=== PATIENT | female | born 1935 | race Caucasian/White ===

== ENCOUNTER 2018-05-24 08:26 | Observation (INO) | payer MEDICARE, BC ==
[2018-05-24 08:52] LABS: #Basophils 0.1 thou/uL (0.0-0.2); #Eosinphils 0.1 thou/uL (0.0-0.7); #Lymphocytes 2.3 thou/uL (1.20-3.40); #Monocytes 0.5 thou/uL (0.11-0.59); #Neutrophils 2.9 thou/uL (1.40-6.50); %Basophils 1.3 % (0.0-1.0); %Eosinophils 1.9 % (0.0-10.0); %Lymphocytes 39.7 % (21.0-51.0); %Monocytes 7.6 % (0.0-10.0); %Neutrophils 49.6 % (42.0-75.0); Hemoglobin 14.5 g/dL (12.0-16.0); Mean Corpuscular HGB CONC 33.5 g/dL (32.0-36.0); Mean Corpuscular Hemoglobin 30.7 pg (27.0-31.0); Mean Corpuscular Volume 91.9 fL (78.0-98.0); Mean Platelet Volume 6.8 fL (7.4-10.4); Platelet Count 275 thou/uL (130-400); RBC Distribution Width 12.1 % (11.5-14.5); Red Blood Cell (RBC) Count 4.71 mill/uL (4.20-5.40); White Blood Cell (WBC) Count 5.9 thou/uL (4.8-10.8)
[2018-05-24 09:27] LABS: ALT (SGPT) 14 U/L (8-55); AST (SGOT) 20 U/L (5-34); Albumin 4.1 g/dL (3.4-4.8); Alkaline Phosphatase 62 U/L (40-150); Anion Gap 11 mmol/L (10-20); BUN (Urea Nitrogen) 13 mg/dL (9.8-20.1); Bilirubin, Total 0.8 mg/dL (0.2-1.2); CK (CPK) 53 U/L (29-168); Calc. Creatinine Clearance 0 mL/min (70-130); Calcium 9.5 mg/dL (7.8-10.44); Carbon Dioxide 27 mmol/L (23-31); Chloride 102 mmol/L (98-107); Estimated GFR-MDRD 71; Globulin 3.1 g/dL (2.4-3.5); Glucose 120 mg/dL (83-110); Potassium 3.2 mmol/L (3.5-5.1); Protein, Total 7.2 g/dL (6.0-8.3); Sodium 137 mmol/L (136-145)
--- NOTE | 2018-05-24 09:30 | RAD ---
CHEST 1 VIEW: Date: 05/24/18 COMPARISON: 11/27/16. HISTORY: Palpitations and indigestion. FINDINGS: Stable left perihilar changes. Stable configuration of the cardiac silhouette. No pneumothorax or oss eous abnormalities. IMPRESSION: No acute cardiopulmonary process. POS: ARIA
[2018-05-24 09:31] LABS: CKMB 1.8 ng/mL (0-6.6); Troponin I Less than 0.010 ng/mL (< 0.028)
[2018-05-24] MEDS ORDERED: Metoprolol Tartrate 5 MG/5 ML VIAL ONE (10:20)
[2018-05-24 10:41] LABS: Bilirubin Negative (Negative); Blood, Urine Trace (Negative); Clarity CLEAR (Clear); Glucose, Urine (Dipstick) Negative (Negative); Leukocyte Negative (Negative); Nitrite Negative (Negative); Protein, Urine (Dipstick) Negative (Neg-Trace); Specific Gravity, Urine 1.019 (1.002-1.036); Urobilinogen 0.2 mg/dL (0.2-1.0)
[2018-05-24 10:43] LABS: Bacteria/HPF None Seen HPF (None Seen); Hyaline Casts/LPF 4-6 HYALINE CAST LPF (0-3 Hyaline); Pathc Cast-AUWi Flag 0.58 (0-2.49); WBC/HPF 0-3 HPF (0-3)
--- NOTE | 2018-05-24 11:23 | CT ---
CT ARTERIOGRAM CHEST WITH IV COTNRAST AND 3D MIP IMAGING: HISTORY: Chest pain. Dyspnea. Tachycardia. COMPARISON: 12/01/2016. FINDINGS: There is good contrast opacification of the pulmonary arteries and thoracic aorta with normal branchi ng of the great vessels. Within the lateral aspect of the lower lobe, the lobular [id number] area wit h adjacent linear atelectasis is unchanged from the previous exam. Some air bronchograms extend into the infiltrate. No new areas of infiltrate, pleural fluid, or pneumothorax are apparent. IMPRESSION: 1. No CT evidence of pulmonary embolus. 2. Persistent mass-like infiltrate within the left upper lobe. It has not changed significantly ove r the 18-month interval. Please consider pulmonary medicine evaluation and potential bronchoscopy. POS: ARIA
--- NOTE | 2018-05-24 12:33 | HP ---
DATE OF ADMISSION: 05/24/2018 PRIMARY CARE PHYSICIAN: Dr. Zack Chery. TIME OF SERVICE: 1100. CHIEF COMPLAINT: Palpitations. HISTORY OF PRESENT ILLNESS: Ms. Burris is a pleasant 82-year-old female who appears younger than her stated age who woke up this morning and did not feel good. She noticed that her heart was racin g though she did not remark when asked if it was regular and with her medical background, decided to check her blood pressure. Her blood pressure was elevated and her heart rate was 117. She felt weak and some shortness of breath. She felt dizzy, which she described as lightheaded, but not off stuart ce. She called her primary care physician who told her to go to the emergency department. Her daugh ter drove her to the emergency department for evaluation. She never had any history of atrial fibrillation, atrial flutter or tachycardia before. She has had no chest pain. No fevers or chills. No cough or sputum production. On arrival to emergency department, blood pressure was 205/79 with a heart rate of 113. EKG was done that showed sinus tachycardia. Her heart rate came down on its own and 30 minutes later, she was gi selina a 5 mg dose of Lopressor. We were subsequently called for admission for hypertensive urgency. On my evaluation, the patient is feeling better. Her blood pressure had been in the 160s, but did go up as we were talking. Heart rate has been okay. She denies any other current complaints. Labs in the ER show potassium slightly low at 3.2 and her D-dimer to be barely elevated at 0.98. She had negative cardiac biomarker and CT angio was ordered. PAST MEDICAL HISTORY: 1. Hypothyroidism. 2. Hyperlipidemia, primary cholesterol. 3. Hypertension, essential. PAST SURGICAL HISTORY: Include; 1. Adenoidectomy, tonsillectomy, remotely. 2. Bilateral cataract replacement. 3. Left ovarian cyst removal. 4. Back surgery, laminectomy. 5. Hysterectomy, remotely. 6. Thyroidectomy. 7. Left TKA. 8. Cholecystectomy. 9. Hernia repair. HOME MEDICATIONS: 1. Levothyroxine 100 mcg p.o. daily. 2. Amlodipine 5 mg daily, decreased about a year ago from 10 down to 5 due to leg swelling. 3. Atenolol 50 mg p.o. q.p.m. 4. Pravachol 40 mg p.o. daily. 5. Aspirin 81 mg daily. 6. Celebrex 200 mg daily. 7. Zantac as needed. 8. Nexium 40 mg daily. 9. Estradiol cream as needed. ALLERGIES: LIMBREL and HYDROCODONE. FAMILY HISTORY: Negative for clotting or bleeding disorder. No immune dysfunction, no cancers. SOCIAL HISTORY: Negative for habits x3. She lives at home with her daughter, but is very independen t and her daughter does not interfere with her activities. REVIEW OF SYSTEMS: All systems reviewed and negative except as stated per HPI. PHYSICAL EXAMINATION: VITAL SIGNS: Temperature 97.7, pulse 63, blood pressure 165/65, respiratory rate 15, sat 98% on room air. On arrival, heart rate was 113 with a blood pressure 205/79. GENERAL: She is awake. She is alert. She is oriented x3. Well-developed, well-nourished, elderly white female, appears in no distress. HEENT: Normocephalic, atraumatic. Pupils equal, round, react to light bilaterally. She has bilater al pseudophakia. NECK: Supple. There is no lymphadenopathy, JVD, or thyromegaly. She had normal carotid upstroke. I do not appreciate bruits. LUNGS: Clear, no wheezing, rales or rhonchi. Good air movement. Symmetric chest excursion. No pro longed expiratory phase. ABDOMEN: Soft. Nontender and slightly distended. She is not tympanitic. She has no rebound, rigid ity or guarding. EXTREMITIES: No cyanosis or clubbing. She got no edema. SKIN: Warm, moist, and well perfused. There were no rashes, no lesions. MUSCULOSKELETAL: Normal to inspection. Large joints appear normal. There is no evidence of inflamm ation or palpable effusion. NEUROLOGIC: Cranial nerves II-XII grossly intact. She has 5/5 strength in all 4 extremities. She h as a normal speech pattern. No focal deficits. LABORATORY DATA: Sodium 137, potassium 3.2, chloride 102, bicarb 27, BUN 13, creatinine 0.78, calciu m 9.5, glucose of 120. Liver function within normal limits. CBC showed a white count of 5.9, hemoglobin 14.5, hematocrit of 43.3, platelet count 275,000. D-dime r slightly elevated at 0.98. Troponin I was negative x1 at less than 0.010. Chest x-ray was read th ere is no abnormality; however, I do see something in the middle of the left lung. CT angiogram show ed a lobular mass present in the left upper lobe in the peribronchial area. On review of CAT scan fr om 11/2016, this was present as an irregular infiltrate then. There is no cavitation. There are jayant e air bronchograms. Patient did not know about it. ASSESSMENT AND PLAN: 1. Sinus tachycardia. 2. Hypertensive urgency. 3. Left upper lobe lung mass, chronic and appears stable. 4. Hypothyroidism. 5. Essential hypertension. 6. Hypercholesterolemia. Place the patient in observation. We will watch on the heart monitor. Co ntinue home medications and keep her blood pressure under controlled. We will get serial cardiac bio markers. 7. Lung mass. Patient has had this for at least 18 months. It appears to be unchanged and certainl y not any larger. We will have pulmonary reviewed the films and will have her follow up with them as an outpatient. These will be very easily amenable to bronchoscopic biopsy. 8. Hyperlipidemia. We will hold pravastatin for now. 9. Essential hypertension. We will continue her amlodipine and atenolol. Add p.r.n. hydralazine as needed. 10. Hypothyroidism, on levothyroxine, which will continue.
[2018-05-24] MEDS ORDERED: hydrALAZINE 20 MG/ML VIAL SLOW IVP PRN (12:53)
[2018-05-24] MEDS ORDERED: Acetaminophen 325 MG TAB PO PRN (12:53)
[2018-05-24] MEDS ORDERED: Enoxaparin Sodium 40 MG/0.4 ML SYRINGE SC SCH (12:53)
[2018-05-24 13:04] VITALS: BMI 33.5
[2018-05-24 13:07] LABS: Troponin I Less than 0.010 ng/mL (< 0.028)
[2018-05-24 19:30] LABS: CKMB 1.7 ng/mL (0-6.6); Troponin I Less than 0.010 ng/mL (< 0.028)
[2018-05-24] MEDS ORDERED: Atenolol 50 MG TAB PO SCH (21:00)
[2018-05-24] MEDS ORDERED: Amlodipine 10 MG TAB PO SCH (21:00)
[2018-05-25 00:30] LABS: CKMB 1.8 ng/mL (0-6.6); Troponin I Less than 0.010 ng/mL (< 0.028)
[2018-05-25 05:46] LABS: #Basophils 0.1 thou/uL (0.0-0.2); #Eosinphils 0.1 thou/uL (0.0-0.7); #Monocytes 0.5 thou/uL (0.11-0.59); #Neutrophils 2.4 thou/uL (1.40-6.50); %Basophils 1.1 % (0.0-1.0); %Eosinophils 2.4 % (0.0-10.0); %Lymphocytes 39.3 % (21.0-51.0); %Monocytes 8.9 % (0.0-10.0); %Neutrophils 48.3 % (42.0-75.0); Hemoglobin 13.2 g/dL (12.0-16.0); Mean Corpuscular HGB CONC 33.2 g/dL (32.0-36.0); Mean Corpuscular Hemoglobin 30.7 pg (27.0-31.0); Mean Corpuscular Volume 92.4 fL (78.0-98.0); Platelet Count 234 thou/uL (130-400); RBC Distribution Width 12.1 % (11.5-14.5); Red Blood Cell (RBC) Count 4.29 mill/uL (4.20-5.40); White Blood Cell (WBC) Count 5.1 thou/uL (4.8-10.8)
[2018-05-25 05:57] LABS: Anion Gap 9 mmol/L (10-20); BUN (Urea Nitrogen) 11 mg/dL (9.8-20.1); Calc. Creatinine Clearance 101 mL/min (70-130); Calcium 8.6 mg/dL (7.8-10.44); Carbon Dioxide 24 mmol/L (23-31); Cardiac Risk 2.9 (Less than 4.5); Chloride 108 mmol/L (98-107); Cholesterol 144 mg/dl (< 200 Desired); Estimated GFR-MDRD 87; Glucose 88 mg/dL (83-110); HDL Cholesterol 50 mg/dL (>60 Neg Risk); LDL Cholesterol, Calculated 76 mg/dL; Magnesium 2.1 mg/dL (1.6-2.6); Potassium 3.6 mmol/L (3.5-5.1); Sodium 137 mmol/L (136-145); Triglycerides 88 mg/dL (Less than 150)
[2018-05-25] MEDS ORDERED: Levothyroxine Sodium 100 MCG TAB PO SCH (06:00)
[2018-05-25 08:14] VITALS: BP 159/76; TEMP 97.9
[2018-05-25] MEDS ORDERED: Aspirin 81 mg Enteric Coated Tablet PO SCH (09:00)
[2018-05-25] MEDS ORDERED: Enoxaparin Sodium 40 MG/0.4 ML SYRINGE SC SCH (09:00)
--- NOTE | 2018-05-26 08:25 | EKG ---
Test Reason : Blood Pressure : / mmHG Vent. Rate : 113 BPM Atrial Rate : 113 BPM P-R Int : 186 ms QRS Dur : 080 ms QT Int : 320 ms P-R-T Axes : 038 -33 036 degrees QTc Int : 438 ms Sinus tachycardia Left axis deviation Septal infarct , age undetermined Inferior infarct , age undetermined /(Doubtful) Q's in III and aVF Abnormal ECG Confirmed by TED PACKER ([id number]) on 05/26/2018 8:25:08 AM Referred By: Confirmed By:TED PACKER
== END 2018-05-25 11:49 | disposition home or self-care (01) ==
LOC: ERS 08:26 → 2SW 11:31
PROVIDERS: ADMIT Internal Medicine Infectious Disease; ATTEND Internal Medicine Infectious Disease
DX: R00.2 Palpitations (principal); R00.0 Tachycardia, unspecified; E03.9 Hypothyroidism, unspecified; E78.00 Pure hypercholesterolemia, unspecified; I10 Essential (primary) hypertension; I16.0 Hypertensive urgency; R91.8 Other nonspecific abnormal finding of lung field; Z88.8 Allergy status to other drugs, medicaments and biological substances; Z88.5 Allergy status to narcotic agent; Z79.82 Long term (current) use of aspirin; Z79.899 Other long term (current) drug therapy
CPT/HCPCS: 71045; 71275; 80048; 80061; 82550; 82553 ×3; 83735; 83880; 84484 ×3; 85025; 85379; 93005; 96372; 96374; 97139; 99285; G0378 ×2; 36415; 80053; 81003; 81015; 84443; 96361; J1650

== ENCOUNTER 2018-06-03 07:37 | Day surgery (SDC) | payer MEDICARE, BC ==
[2018-05-31 12:56] VITALS: BMI 32.3
--- NOTE | 2018-05-31 12:59 | HP ---
DATE OF CONSULTATION: 05/31/2018 SERVICE: Pulmonary Medicine. REASON FOR CONSULTATION: Pulmonary mass. HISTORY OF PRESENT ILLNESS: The patient is a very pleasant 82-year-old white female with past medical history significant for an infiltrate that was identified roughly 18 months ago. She got a round of antibiotic and felt better at that time. That being said, repeat imaging recently demonstrated a persistence of the pulmonary mass in the same location. It really had not progressed to any significant degree. That being said, this consultation was established. The patient is a little lack of energy. She is not having any night sweats or hemoptysis. That being said, she has had a little bit of weight reduction. She also has a minimal anorexia present. She has no known lung disease and is a lifelong nonsmoker. She does not have any significant lung cancers that run in primary relatives. PAST MEDICAL HISTORY: 1. Hypothyroidism. 2. Hypertension. 3. Dyslipidemia. 4. Gastroesophageal reflux disease. 5. Atrophic vaginitis. PAST SURGICAL HISTORY: 1. Tonsillectomy and adenoidectomy in 1941. 2. D&C in 1964. 3. Total abdominal hysterectomy in 1969. 4. Right thyroidectomy for cold nodule in 1966. 5. Laminectomy in 1974. 6. Cholecystectomy in 1978. 7. Left thyroidectomy for a cold nodule in 1978. 8. Rectocele repair, posterior 1994. 9. Right total knee replacement with angioplasty, 2000. 10. EGD and colonoscopy in 2002. 11. Cystectomy off the left ovary in 2002. 12. Herniorrhaphy in 2007. 13. EGD/colonoscopy in 2007. 14. Cataract surgery, bilateral in 2008. 15. Left ureter stent placement in 2015. 16. Left total knee replacement in 2016. SOCIAL HISTORY: Negative for alcohol, tobacco or illicit drug use. She is a lifelong nonsmoker. She has no exposure to chemicals, dust asbestos or tuberculosis. FAMILY HISTORY: Positive for heart attack, cancer, not lung, thyroid disease, and osteoarthritis. ALLERGIES: 1. HYDROCODONE. 2. LIMBREL causes fever, shortness of breath, upset stomach, dark urine, light stools, and loose stool and gas. MEDICATIONS: 1. Levothyroxine 100 mcg p.o. daily. 2. Amlodipine 5 mg p.o. at bedtime. 3. Atenolol 50 mg p.o. at bedtime. 4. Pravastatin 40 mg p.o. at bedtime. 5. Zantac 150 mg p.o. b.i.d. 6. Estradiol vaginal cream 0.1 mg per gram p.m. 7. Aspirin 81 mg p.o. daily (temporarily interrupted today). 8. Multivitamin 1 tab p.o. daily. 9. Citracal with Vitamin D 1 tab p.o. daily. 10. Celebrex 1 tab p.o. as needed. 11. CoQ10 one tab p.o. daily. REVIEW OF SYSTEMS: General, head, ears, eyes, nose, throat, cardiovascular, respiratory, GI, , musculoskeletal, neurologic and skin is negative except as mentioned in the HPI. PHYSICAL EXAMINATION: VITAL SIGNS: Afebrile, pulse 81, respirations 13, saturation 98% on room air. GENERAL: The patient is awake, alert, no apparent distress. LUNGS: Excellent air entry. There is no prolonged expiratory phase or wheezing. No rhonchi or crackles are appreciated. HEART: Normal rate, regular. ABDOMEN: Soft, nontender, nondistended. Bowel sounds positive. MUSCULOSKELETAL: No cyanosis or clubbing. There is no pitting in the bilateral lower extremities. NEUROLOGIC: Grossly nonfocal. IMAGING: CT of the chest demonstrates infiltrate appearing mass in the left upper lobe which has persisted and not changed significantly over 18-month interval. Outside of this, I do not see any acute cardiopulmonary abnormalities. There is certainly no significant lymphadenopathy identified within the mediastinum. ASSESSMENT: Pulmonary mass/infiltrate. DISCUSSION AND PLAN: We will set up a bronchoscopy for Sunday. We will have her return to clinic 1 week after that can be arranged. We will set up pulmonary function studies. If they hand turner to be not indicated, we will discontinue them at her followup appointment. VICTOR MANUEL
[2018-06-03] MEDS ORDERED: Lidocaine 2% PF 5 ML VIAL ONE (08:21)
[2018-06-03] MEDS ORDERED: Lidocaine 1% (PF) 30 ML VIAL ONE (09:58)
[2018-06-03] MEDS ORDERED: Fentanyl 100 MCG/2 ML VIAL ONE (10:05)
[2018-06-03 13:37] LABS: BF Color Red; Body Fluid Source Bronchial Washings; Clarity Cloudy/Turbid (Clear); Tube # EDTA
--- NOTE | 2018-06-03 13:42 | OP ---
DATE OF PROCEDURE: 06/03/2018 SERVICE: Pulmonary Medicine. PROCEDURE: Fiberoptic bronchoscopy with: 1. Visual airway inspection. 2. Endobronchial brush of the left upper lobe. 3. Bronchoalveolar lavage of the left upper lobe. 4. Transbronchial biopsies of the left upper lobe. PREPROCEDURE DIAGNOSIS: Pulmonary mass. POSTPROCEDURE DIAGNOSIS: Pulmonary mass. PROCEDURE MOTION PICTURE EQUIPMENT SUPERVISOR: Shreyas Boudreaux M.D. MEDICATIONS USED: For a list of medications, please refer to anesthesia documentation. PREANESTHESIA ASSESSMENT: H and P had been performed. The patient's medications and allergies were reviewed. Informed consent was obtained after discussing the risks, benefits, and rationale for perf orming the procedure as well as alternative options. DESCRIPTION OF PROCEDURE: A timeout was performed identifying the correct procedure and patient with name and date of . A diagnostic fiberoptic bronchoscope was introduced through the 8.0 endotra cheal tube. The bronchoscope was advanced into the trachea where a tracheobronchial tree inspection was carried out with clear identification of the right upper lobe, right middle lobe, right lower lob e, left upper lobe, lingula, and left lower lobe. Anatomy was normal to the segmental level without any evidence of endobronchial disease. Endobronchial brushing was performed under fluoroscopic roxie nce. A BAL was subsequently performed. Lastly, multiple transbronchial biopsies were taken from sev eral areas of the anterolateral segment of the left upper lobe under fluoroscopy. Hemostasis was samira ified and the bronchoscope was subsequently removed from the patient. Post-procedure fluoroscopy did not demonstrate any pneumothorax. FINDINGS: 1. No endobronchial disease was identified. 2. Secretions were absent. SPECIMENS OBTAINED: 1. Pathology on BAL, brushings, and transbronchial biopsy. 2. Microbiology on BAL. COMPLICATIONS: None. ESTIMATED BLOOD LOSS: 2 mL. FLUOROSCOPY TIME: 2 minutes. DISPOSITION: The patient will be discharged home with post-procedure instructions. She will return to clinic in 1 week as previously directed.
[2018-06-03 13:43] LABS: BF RBC Count - Manual 72600 /cumm; BF WBC/Nonhematics Ct. - Manua 180 /cumm
[2018-06-03 15:48] LABS: BF Segmented Neutrophils 14 %; Cell Count Non Hematic 73 %; Lymphocytes 13 %
[2018-06-03] MEDS ORDERED: Glycopyrrolate 0.2 MG/ML 5 ML SYRINGE ONE (17:20)
[2018-06-03] MEDS ORDERED: Ondansetron PF 4 MG/2 ML Vial ONE (17:20)
[2018-06-03] MEDS ORDERED: PROPOFOL 200 MG/20 ML VIAL ONE (17:20)
[2018-06-06 10:22] LABS: Fungus Stain Final report (.)
== END 2018-06-03 12:27 | disposition home or self-care (01) ==
LOC: SDC 07:37
PROVIDERS: ATTEND Internal Medicine
PROC: 0BDG8ZX Extraction of Left Upper Lung Lobe, Via Natural or Artificial Opening Endoscopic, Diagnostic (ICD-10-PCS; principal; 2018-06-03)
PROC: 0BDG8ZX Extraction of Left Upper Lung Lobe, Via Natural or Artificial Opening Endoscopic, Diagnostic (ICD-10-PCS; 2018-06-03)
PROC: 0B9G8ZX Drainage of Left Upper Lung Lobe, Via Natural or Artificial Opening Endoscopic, Diagnostic (ICD-10-PCS; 2018-06-03)
DX: C34.12 Malignant neoplasm of upper lobe, left bronchus or lung (principal); E03.9 Hypothyroidism, unspecified; E78.5 Hyperlipidemia, unspecified; K21.9 Gastro-esophageal reflux disease without esophagitis; N95.2 Postmenopausal atrophic vaginitis; I10 Essential (primary) hypertension; Z79.82 Long term (current) use of aspirin; Z79.899 Other long term (current) drug therapy; Z88.5 Allergy status to narcotic agent; Z88.8 Allergy status to other drugs, medicaments and biological substances
CPT/HCPCS: 85060; 87070; 87102; 87116; 87205; 87206; 88112; 88305; 88313; 88341; 88342; 89051; J2001; J2405; J2704; J3010; J7620

== ENCOUNTER 2018-06-18 07:06 | Outpatient (CLI) | payer MEDICARE, BC | END 2018-06-18 07:07 | disposition home or self-care (01) | LOC: CP 07:06 | PROVIDERS: ATTEND Orthopaedic Surgery Sports Medicine | DX: R91.8 Other nonspecific abnormal finding of lung field (principal) | CPT/HCPCS: 94060; 94727; 94729 ==

== ENCOUNTER 2018-06-21 08:05 | Outpatient (CLI) | payer MEDICARE, BC ==
--- NOTE | 2018-06-21 12:19 | MRI ---
MRI BRAIN WITH AND WITHOUT CONTRAST: HISTORY: Small cell cancer. Evaluate for metastases. COMPARISON: None. FINDINGS: No hemorrhage on the axial gradient echo sequence. No parenchymal mass, mass effect, or midline shift. Brain volume is age appropriate. Cortical sharp white matter differentiation is preserved. The ventricles and sulci are patent and symmetric. Central arterial flow voids are maintained. Absent restricted diffusion. Note is made of a partially empty sella. There are T2 and FLAIR white matter hyperintensities, likely due to chronic small vessel ischemic daniel nge. No associated enhancement or restricted diffusion. The calvarium has a normal T1 marrow signal intensity. Midline brain parenchymal structures are unre markable. No pathologic enhancement of the brain parenchyma. Minimal mucosal thickening of the ethmoid air cells. Adequate mastoid air cell aeration. IMPRESSION: 1. No pathologic enhancement of the brain parenchyma. 2. Chronic small vessel ischemic changes of the white matter. POS: ARIA
[2018-06-21] MEDS ORDERED: Gadobenate Dimeglumine 529 MG/1 ML (20ML VIAL) ONE (12:38)
--- NOTE | 2018-06-21 12:50 | PET ---
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 Exam requested for initial staging. TECHNIQUE: PET scanning with CT attenuation correction was performed from the base of the brain through the prox imal thighs following the intravenous administration of 11.8 mCi [id number] in the right antecubital fos sa. Imaging was performed after an uptake interval of 50 minutes. COMPARISON: None. FINDINGS: There is hypermetabolic activity in the anterior aspect of the left upper lobe lung mass seen on the CT scan of 05/24/18 with a SUV of 10.8. No rosalie hypermetabolism is seen in the neck, mediastinum, hilar regions, axilla, abdomen, or pelvis. No hypermetabolic liver, adrenal, or skeletal lesions are seen. There is physiologic activity in the GI and tracts, and the visualized portions of the brain. The CT scan used for attenuation correction demonstrates no evidence of pleural effusions or ascites. IMPRESSION: Left upper lobe lung malignancy. No evidence of metastatic disease. POS: ARIA
== END 2018-06-21 08:06 | disposition home or self-care (01) ==
LOC: PET 08:05
PROVIDERS: ATTEND Internal Medicine
DX: C34.12 Malignant neoplasm of upper lobe, left bronchus or lung (principal)
CPT/HCPCS: 70553; 78815; A9552; A9579

== ENCOUNTER 2018-07-03 15:24 | Outpatient (CLI) | payer MEDICARE, BC ==
[2018-07-03 16:14] LABS: Hemoglobin 14.3 g/dL (12.0-16.0); Mean Corpuscular HGB CONC 33.1 g/dL (32.0-36.0); Mean Corpuscular Hemoglobin 30.5 pg (27.0-31.0); Mean Corpuscular Volume 92.1 fL (78.0-98.0); Platelet Count 236 thou/uL (130-400); RBC Distribution Width 12.3 % (11.5-14.5); White Blood Cell (WBC) Count 5.7 thou/uL (4.8-10.8)
[2018-07-03 16:20] LABS: PTT 28.6 SEC (22.9-36.1); Prothrombin Time 13.5 SEC (12.0-14.7)
[2018-07-03 16:39] LABS: Anion Gap 12 mmol/L (10-20); BUN (Urea Nitrogen) 14 mg/dL (9.8-20.1); Calc. Creatinine Clearance 0 mL/min (70-130); Calcium 9.8 mg/dL (7.8-10.44); Carbon Dioxide 29 mmol/L (23-31); Chloride 104 mmol/L (98-107); Estimated GFR-MDRD 70; Glucose 101 mg/dL (83-110); Potassium 3.8 mmol/L (3.5-5.1); Sodium 141 mmol/L (136-145)
--- NOTE | 2018-07-04 14:30 | EKG ---
Test Reason : Blood Pressure : / mmHG Vent. Rate : 070 BPM Atrial Rate : 070 BPM P-R Int : 178 ms QRS Dur : 084 ms QT Int : 404 ms P-R-T Axes : 060 -10 039 degrees QTc Int : 436 ms Normal sinus rhythm Low voltage QRS Septal infarct (cited on or before 24-MAY-2018) Abnormal ECG When compared with ECG of 24-MAY-2018 08:32, Vent. rate has decreased BY 43 BPM Criteria for Inferior infarct are no longer Present Nonspecific T wave abnormality now evident in Anterior leads Confirmed by BROOK NELSON, DR. Jiang ([id number]) on 07/04/2018 2:29:30 PM Referred By: MARTA Confirmed By:DR. Apolinar DOE MD
== END 2018-07-03 15:25 | disposition home or self-care (01) ==
LOC: LABBT 15:24
PROVIDERS: ATTEND Thoracic Surgery (Cardiothoracic Vascular Surgery)
DX: Z01.818 Encounter for other preprocedural examination (principal); C34.12 Malignant neoplasm of upper lobe, left bronchus or lung
CPT/HCPCS: 80048; 85027; 85610; 85730; 86850; 86900; 86901; 93005; 93010

== ENCOUNTER 2018-07-04 05:55 | Inpatient (IN) | payer MEDICARE, BC ==
[2018-07-04] MEDS ORDERED: Bupivacaine HCl 0.5%/Epinephrine 1:200,000/PF 30 ml Vial ONE (06:27)
[2018-07-04] MEDS ORDERED: Fentanyl 250 MCG/5 ML VIAL ONE (06:33)
[2018-07-04] MEDS ORDERED: Ropivacaine 0.5% HCl/PF (150 MG/30 ML VIAL) ONE (06:33)
[2018-07-04] MEDS ORDERED: Phenylephrine HCL 10 MG/ML VIAL ONE ×2 (06:41→11:28)
[2018-07-04] MEDS ORDERED: CEFAZOLIN 2 GM/50 ML BAG ONE ×2 (07:17→16:08)
[2018-07-04] MEDS ORDERED: traMADol HCl 50 MG TAB PO PRN ×2 (08:30)
[2018-07-04] MEDS ORDERED: diphenhydrAMINE 50 MG/ML VIAL IM PRN (08:30)
[2018-07-04] MEDS ORDERED: Zolpidem Tartrate 5 MG TAB PO PRN (08:30)
[2018-07-04] MEDS ORDERED: diphenhydrAMINE 50 MG/ML VIAL IVP PRN (08:30)
[2018-07-04] MEDS ORDERED: Naloxone HCl 0.4 mg/ml Vial IVP PRN (08:30)
[2018-07-04] MEDS ORDERED: Promethazine HCl 25 MG SUPP PR PRN (08:30)
[2018-07-04] MEDS ORDERED: Naloxone HCl 0.4 mg/ml Vial IV PRN (08:30)
[2018-07-04] MEDS ORDERED: Hydrocerin (Eucerin) Cream 120 gm Jar TOP PRN (08:30)
[2018-07-04] MEDS ORDERED: Promethazine HCl 25 MG/ML VIAL IM PRN ×2 (08:30→10:07)
[2018-07-04] MEDS ORDERED: Lidocaine 1% (PF) 30 ML VIAL ONE (09:32)
[2018-07-04] MEDS ORDERED: Fentanyl/Bupivacaine 100 ML EPIDURAL ONE (10:01)
[2018-07-04] MEDS ORDERED: Ondansetron HCl/PF 4 MG/2 ML Vial IVP PRN (10:07)
[2018-07-04] MEDS ORDERED: Promethazine HCl 25 MG/ML VIAL SLOW IVP PRN (10:07)
[2018-07-04] MEDS ORDERED: Fentanyl 100 MCG/2 ML VIAL ONE ×3 (10:17→13:35)
[2018-07-04] MEDS ORDERED: Phenylephrine 1% Nasal Spray 15 ML BOT ONE (11:00)
--- NOTE | 2018-07-04 11:55 | RAD ---
SINGLE VIEW CHEST: Date: 07/04/18 COMPARISON: 05/24/18. HISTORY: Status post thoracotomy. FINDINGS: Single view of the chest shows an enlarged cardiomediastinal silhouette. There are left-sided chest t ubes. There may be a small left apical pneumothorax. No consolidation or pleural effusion seen. Surgi simona clips are seen in the left hilar region. IMPRESSION: Status post thoracotomy with small left apical pneumothorax. POS: ARIA
[2018-07-04] MEDS ORDERED: PROPOFOL 200 MG/20 ML VIAL ONE (12:53)
[2018-07-04] MEDS ORDERED: Glycopyrrolate 0.2 MG/ML 5 ML SYRINGE ONE (12:53)
[2018-07-04] MEDS ORDERED: Lidocaine 1% PF 5 ML VIAL ONE (12:53)
[2018-07-04] MEDS ORDERED: ePHEDrine/0.9% NaCl/PF SYRINGE 50 mg/10 ml ONE (12:53)
[2018-07-04] MEDS ORDERED: Ondansetron PF 4 MG/2 ML Vial ONE (12:53)
[2018-07-04] MEDS ORDERED: Dexamethasone 20 MG/5 ML VIAL ONE (12:53)
[2018-07-04 14:04] VITALS: BMI 33.0
[2018-07-04] MEDS ORDERED: Phenylephrine 10 MG/NS 250 ML 250 ML IVPB PRN (15:31)
[2018-07-04] MEDS ORDERED: CEFAZOLIN/Water 2 GM/20 ML SYRINGE SLOW IVP SCH (15:31)
[2018-07-04] MEDS ORDERED: HYDROcodone/Acetaminophen 5/325 mg Tablet PO PRN ×2 (15:31)
[2018-07-04] MEDS ORDERED: hydrALAZINE 20 MG/ML VIAL SLOW IVP PRN (15:31)
[2018-07-04] MEDS ORDERED: Ketorolac Tromethamine 30 MG/ML VIAL ONE (17:49)
--- NOTE | 2018-07-04 19:39 | OP ---
DATE OF PROCEDURE: 07/04/2018 PREOPERATIVE DIAGNOSIS: Left upper lobe adenocarcinoma. POSTOPERATIVE DIAGNOSIS: Left upper lobe adenocarcinoma. PROCEDURES PERFORMED: Left thoracoscopy/thoracotomy with left upper lobectomy and mediastinal lymph node dissection. ANESTHESIA: General endotracheal. ANESTHESIOLOGIST: Angelo Vickers DO DRAINS: 24-Romansh chest tube x2. ESTIMATED BLOOD LOSS: Less than 50 ml SPECIMENS: 1. Left upper lobe-bronchial margin negative on frozen section. 2. Levels 9L, 8L, and 4L lymph nodes sent individually for pathologic exam. DESCRIPTION OF PROCEDURE: After consent was obtained, the patient was brought to the operating room and placed in supine position on the operating table. Appropriate landmarks were placed and general endotracheal anesthesia induced. The patient was placed in the right lateral decubitus position. Joints were properly padded. SCDs were used. Left chest was prepped and draped in usual sterile fashion. Skin incision was made in the anterior axillary line and thoracoscope inserted. On inspection, the left upper lobe mass had puckered the surface of the lung. An incision was positioned appropriately over the fissure. A small working incision was then made. Ribs were minimally spread. The infrapulmonary ligament was released and level 9 lymph node sent. Hilar parietal pleura was released. A level 8 and a level 4 lymph node were also sent. Pulmonary veins were exposed draining the left upper lobe. These were divided with vascular stapler. Apical pulmonary artery branches were divided with vascular stapler. The fissure was then opened. The lingular branch was divided with vascular stapler. Posterior fissure was completed with a thick- tissue CORDELL stapler. Anterior fissure was then completed with a thick-tissue CORDELL stapler. Bronchus was clamped with a thick-tissue CORDELL stapler. Lower lobe inflated nicely. The stapler was then fired and the upper lobe removed. Bronchial stump was tested under 40 cm of water pressure and it was airtight. Chest was copiously irrigated. Hemostasis was ensured. Two 24-Romansh Mike drains were placed, one over the diaphragm, one to the apex, and secured the skin with silk suture. The left lung was then reinflated and filled the chest cavity nicely. Ribs were reapproximated with #1 Vicryl. Wounds were irrigated and closed in layers and Dermabond applied to the skin. The patient was awakened, extubated, and transferred to the recovery room in stable condition. Needle, sponge, and instrument counts were all reported as correct at the end of the procedure. Job ID: [id number] [id number]
[2018-07-04] MEDS ORDERED: INULIN 2 GM PO SCH (21:00)
[2018-07-04] MEDS: Acetaminophen 1,000 MG in Premix Bag 1 BAG IVPB SCH ×2 (21:40→21:41)
[2018-07-04] MEDS: Ketorolac Tromethamine 30 MG/ML VIAL IVP SCH (21:41)
[2018-07-04] MEDS: Sodium Chloride 0.9% 1,000 ML IV SCH (21:42)
[2018-07-04] MEDS: Atorvastatin Calcium 10 MG TAB PO SCH (21:42)
[2018-07-04] MEDS: CEFAZOLIN 2 GM/50 ML-DEXTROSE 2 GM in Premix Bag 1 BAG IVPB SCH (21:42)
[2018-07-04] MEDS: Ubidecarenone 50 MG CAP PO SCH (21:43)
[2018-07-04] MEDS: Calcium Carbonate + Vit D 1 TAB PO SCH (21:43)
[2018-07-04] MEDS: Aspirin 81 mg Enteric Coated Tablet PO SCH (21:43)
[2018-07-04] MEDS: Amlodipine 5 MG TAB PO SCH (21:43)
[2018-07-04] MEDS: Atenolol 50 MG TAB PO SCH (21:43)
[2018-07-04] MEDS: Famotidine 20 MG TAB PO SCH (21:43)
[2018-07-04] MEDS: Fentanyl/Bupivacaine 100 ML EPIDURAL SCH (21:45)
[2018-07-05] MEDS: Ketorolac Tromethamine 30 MG/ML VIAL IVP SCH ×5 (00:16→23:57)
[2018-07-05] MEDS: CEFAZOLIN 2 GM/50 ML-DEXTROSE 2 GM in Premix Bag 1 BAG IVPB SCH ×2 (00:16→08:13)
[2018-07-05] MEDS: Acetaminophen 1,000 MG in Premix Bag 1 BAG IVPB SCH ×5 (00:16→23:57)
[2018-07-05 04:28] LABS: #Lymphocytes 0.8 thou/uL (1.20-3.40); #Monocytes 0.7 thou/uL (0.11-0.59); #Neutrophils 8.7 thou/uL (1.40-6.50); %Eosinophils 0.4 % (0.0-10.0); %Lymphocytes 8.2 % (21.0-51.0); %Monocytes 6.7 % (0.0-10.0); %Neutrophils 84.7 % (42.0-75.0); Mean Corpuscular HGB CONC 33.3 g/dL (32.0-36.0); Mean Corpuscular Hemoglobin 30.9 pg (27.0-31.0); Mean Corpuscular Volume 92.8 fL (78.0-98.0); Mean Platelet Volume 8.7 fL (7.4-10.4); Platelet Count 192 thou/uL (130-400); RBC Distribution Width 12.4 % (11.5-14.5); Red Blood Cell (RBC) Count 3.87 mill/uL (4.20-5.40); White Blood Cell (WBC) Count 10.3 thou/uL (4.8-10.8)
[2018-07-05 04:47] LABS: Anion Gap 9 mmol/L (10-20); BUN (Urea Nitrogen) 17 mg/dL (9.8-20.1); Calc. Creatinine Clearance 87 mL/min (70-130); Calcium 7.8 mg/dL (7.8-10.44); Carbon Dioxide 23 mmol/L (23-31); Chloride 107 mmol/L (98-107); Estimated GFR-MDRD 78; Glucose 108 mg/dL (83-110); Sodium 135 mmol/L (136-145)
[2018-07-05] MEDS: Levothyroxine Sodium 100 MCG TAB PO SCH (05:02)
[2018-07-05] MEDS: Sodium Chloride 0.9% 1,000 ML IV SCH ×2 (05:03→20:20)
[2018-07-05] MEDS: Multivit, Therapeutic 1 TAB PO SCH (08:12)
[2018-07-05] MEDS: Calcium Carbonate + Vit D 1 TAB PO SCH ×2 (08:12→20:22)
[2018-07-05] MEDS: Famotidine 20 MG TAB PO SCH ×2 (08:12→20:22)
--- NOTE | 2018-07-05 08:41 | RAD ---
CHEST 1 VIEW: INDICATION: History of thoracotomy. FINDINGS: Left-sided chest tubes are stable. No pneumothorax is evident. Cardiomegaly is stable. IMPRESSION: Resolution of previously seen left apical pneumothorax. POS: JOYCEH
[2018-07-05] MEDS: Fentanyl/Bupivacaine 100 ML EPIDURAL SCH ×2 (11:10→23:50)
[2018-07-05] MEDS: Calcium Carbonate 500 MG ChewTAB PO PRN (12:06)
[2018-07-05] MEDS: diphenhydrAMINE 25 MG CAP PO PRN ×2 (16:10→23:56)
[2018-07-05] MEDS: Amlodipine 5 MG TAB PO SCH (20:20)
[2018-07-05] MEDS: Atenolol 50 MG TAB PO SCH (20:21)
[2018-07-05] MEDS: Aspirin 81 mg Enteric Coated Tablet PO SCH (20:21)
[2018-07-05] MEDS: Atorvastatin Calcium 10 MG TAB PO SCH (20:21)
[2018-07-05] MEDS: Ubidecarenone 50 MG CAP PO SCH (20:22)
--- NOTE | 2018-07-05 23:24 | CON ---
DATE OF CONSULTATION: 07/05/2018 SERVICE: Pulmonary Medicine. REASON FOR CONSULT: ICU patient. HISTORY OF PRESENT ILLNESS: The patient is a very pleasant 82-year-old white female with past medical history significant for [id number]-[id number] lung cancer. It is adenocarcinoma and poorly differentiated. It appears to be limited to the left upper lobe. She went for an elective thoracotomy, with left upper lobectomy and is currently postop day 1 from that procedure. It was an uncomplicated procedure, and currently, the patient does not have any significant discomfort. She has an epidural in place. She is able to breathe deeply, and cough vigorously. Otherwise, there have been no interval events overnight. Chest tube is in place, there is a little bit of leak there. PAST MEDICAL HISTORY: 1. Hypothyroidism. 2. Hypertension. 3. Dyslipidemia. 4. Gastroesophageal reflux disease. 5. Phz-[id number]-[id number] lung cancer of the left upper lobe. 6. Atrophic vaginitis. PAST SURGICAL HISTORY: 1. Tonsillectomy and adenoidectomy in 1941. 2. D and C in 1964. 3. Total abdominal hysterectomy in 1969. 4. Right thyroidectomy for cold nodule in 1966. 5. Laminectomy in 1974. 6. Cholecystectomy in 1978. 7. Left thyroidectomy for cold nodule in 1978. 8. Rectocele repair, posterior, in 1994. 9. Right total knee replacement with angioplasty in 2000. 10. EGD and colonoscopy in 2002. 11. Cystectomy of the left ovary in 2002. 12. Herniorrhaphy in 2007. 13. EGD and colonoscopy repeat in 2007. 14. Cataract surgery, bilateral, in 2008. 15. Left ureteral stent placement in 2015. 16. Left total knee replacement in 2016. 17. Left thoracotomy with resection of left upper lobe and mediastinal lymph node dissection. SOCIAL HISTORY: Negative for alcohol, tobacco, or illicit drug use. She is a lifelong nonsmoker, and has no exposure to chemicals, dust, asbestos, or tuberculosis. FAMILY HISTORY: Noncontributory. ALLERGIES: 1. HYDROCODONE. 2. LIMBREL. MEDICATIONS: List of her inpatient medications was reviewed. No specific updates were made at this time. REVIEW OF SYSTEMS: General, head, ear, eyes, nose, and throat, cardiovascular, respiratory, genitourinary, musculoskeletal, neurologic, and skin are negative except as mentioned in the HPI. PHYSICAL EXAMINATION: VITAL SIGNS: Afebrile. Pulse 56, blood pressure 116/49, respirations 19, and saturation 93% on 2L nasal cannula. GENERAL: The patient is awake, alert, and in no apparent distress. LUNGS: Excellent air entry. There is no prolonged expiratory phase. I do not appreciate any rubs. HEART: Normal rate, regular. ABDOMEN: Soft, nontender, and nondistended. Bowel sounds are positive. MUSCULOSKELETAL: No cyanosis or clubbing. No pitting in the bilateral lower extremities. NEUROLOGIC: Grossly nonfocal. LABORATORY DATA: WBC 10.3, hemoglobin 12.0, and platelets 192,000. Basic metabolic profile is essentially otherwise unremarkable. IMAGING STUDIES: Chest x-ray demonstrates left-sided thoracostomy tubes, which are in good position. There is a small pneumothorax. Overlying wires are in place. New norbert at the left hilum are noted. ASSESSMENT: 1. Acute hypoxic respiratory failure. 2. Adenocarcinoma of the left upper lobe, status post left upper lobectomy, postop day 1, pathology pending. 3. Gastroesophageal reflux disease. DISCUSSION AND PLAN: The patient is doing absolutely fantastic and proceeding as expected in the postoperative period. Pulmonary will continue to follow through the weekend while the patient remains in the ICU. We will follow along in this location and watch for any respiratory complications. 70 minutes have been devoted to this patient in various activities. I personally reviewed all imaging studies and laboratory data noted within this document. For fifty percent of this time, I was interacting with the patient at the bedside or coordinating care with the care team. For the remainder of the time I was immediately available to the patient in the hospital unit. Job ID: [id number]
[2018-07-06] MEDS: Acetaminophen 1,000 MG in Premix Bag 1 BAG IVPB SCH ×2 (05:03→11:45)
[2018-07-06] MEDS: Levothyroxine Sodium 100 MCG TAB PO SCH (05:04)
[2018-07-06] MEDS: Ketorolac Tromethamine 30 MG/ML VIAL IVP SCH (05:04)
--- NOTE | 2018-07-06 08:16 | RAD ---
CHEST 1 VIEW: Date: 07/06/18 INDICATION: Status post thoracotomy. COMPARISON: Prior exam dated 07/05/18. IMPRESSION: Veil-like opacity involving the left lower hemithorax persists, likely reflecting small left pleural effusion. Left-sided thoracostomy tube is unchanged. No pneumothorax is grossly evident. Right lung i s clear. Heart size remains mildly prominent. POS: [facility]
[2018-07-06] MEDS: Calcium Carbonate + Vit D 1 TAB PO SCH ×2 (08:38→21:07)
[2018-07-06] MEDS: Sodium Chloride 0.9% 1,000 ML IV SCH ×2 (08:38)
[2018-07-06] MEDS: Multivit, Therapeutic 1 TAB PO SCH (08:38)
[2018-07-06] MEDS: Famotidine 20 MG TAB PO SCH ×2 (08:38→21:07)
--- NOTE | 2018-07-06 11:03 | PRG ---
DATE OF SERVICE: 07/06/2018 SUBJECTIVE: The patient is status post thoracotomy yesterday. She is doing well. She is up in a chair. She has a small air leak in the left. OBJECTIVE: VITAL SIGNS: Temperature is 97.8, pulse 41, blood pressure 122/42. HEENT: Unremarkable. NECK: Without adenopathy or JVD. LUNGS: Clear. CARDIAC: S1, S2 regular. ABDOMEN: Soft. EXTREMITIES: No edema. ASSESSMENT: Status post left upper lobectomy for adenocarcinoma. Stable pulmonary status. PLAN: She is transferring out to the floor awaiting pathology results. Pulmonary status is currently stable. Awaiting resolution of air leak. Job ID: [id number]
[2018-07-06] MEDS: Fentanyl/Bupivacaine 100 ML EPIDURAL SCH (12:22)
[2018-07-06] MEDS ORDERED: HYDROcodone/Acetaminophen 5/325 mg Tablet PO PRN ×2 (18:00)
[2018-07-06] MEDS: Ubidecarenone 50 MG CAP PO SCH (21:02)
[2018-07-06] MEDS: Aspirin 81 mg Enteric Coated Tablet PO SCH (21:03)
[2018-07-06] MEDS: Atenolol 50 MG TAB PO SCH (21:05)
[2018-07-06] MEDS: Atorvastatin Calcium 10 MG TAB PO SCH (21:05)
[2018-07-06] MEDS: Amlodipine 5 MG TAB PO SCH (21:06)
[2018-07-06] MEDS: Calcium Carbonate 500 MG ChewTAB PO PRN (21:08)
[2018-07-07] MEDS: Fentanyl/Bupivacaine 100 ML EPIDURAL SCH ×2 (01:13→14:34)
[2018-07-07] MEDS: Levothyroxine Sodium 100 MCG TAB PO SCH (06:24)
[2018-07-07] MEDS: Calcium Carbonate 500 MG ChewTAB PO PRN (06:24)
--- NOTE | 2018-07-07 09:05 | RAD ---
CHEST ONE VIEW: INDICATIONS: Status post thoracotomy. COMPARISON: 07/06/2018 FINDINGS/IMPRESSION: Left-sided pleural parenchymal opacity persists. Left-sided thoracostomy tubes are unchanged. No pn eumothorax is evident. Right lung is clear. Cardiomegaly is stable. POS: [facility]
[2018-07-07] MEDS: Calcium Carbonate + Vit D 1 TAB PO SCH (09:08)
[2018-07-07] MEDS: Famotidine 20 MG TAB PO SCH ×2 (09:08→21:26)
[2018-07-07] MEDS: Multivit, Therapeutic 1 TAB PO SCH (09:08)
[2018-07-07] MEDS ORDERED: Furosemide 40 MG TAB PO SCH (12:00)
[2018-07-07] MEDS: Ondansetron PF 4 MG/2 ML Vial IVP PRN ×2 (17:24→22:55)
[2018-07-07] MEDS: Amlodipine 5 MG TAB PO SCH (21:25)
[2018-07-07] MEDS: Ubidecarenone 50 MG CAP PO SCH (21:25)
[2018-07-07] MEDS: Aspirin 81 mg Enteric Coated Tablet PO SCH (21:26)
[2018-07-07] MEDS: Atorvastatin Calcium 10 MG TAB PO SCH (21:26)
[2018-07-07] MEDS: Atenolol 50 MG TAB PO SCH (21:27)
[2018-07-08] MEDS: Calcium Carbonate 500 MG ChewTAB PO PRN (04:07)
[2018-07-08] MEDS: Levothyroxine Sodium 100 MCG TAB PO SCH (06:26)
--- NOTE | 2018-07-08 07:39 | RAD ---
PORTABLE UPRIGHT FRONTAL CHEST: Date: 07/08/18 COMPARISON: 07/07/18. HISTORY: Reevaluate chest following thoracotomy. FINDINGS: Mild diffuse increased linear interstitial density noted in the right lung. Stable left-sided chest tubes. Postoperative clips and suture material noted in left hilar region. Tiny pneumothorax noted in lateral aspect of left lung apex. IMPRESSION: Postoperative changes as detailed above. Tiny lateral left upper lobe pneumothorax. POS: [facility]
--- NOTE | 2018-07-08 07:49 | PRG ---
DATE OF SERVICE: 07/07/2018 SUBJECTIVE: The patient is doing well. Had no complaints. OBJECTIVE: VITAL SIGNS: Temperature 98.5, pulse 78, respirations 18, O2 saturation 93%, blood pressure 160/53. HEENT: Unremarkable. NECK: No JVD. CHEST: Fairly clear. CARDIAC: S1 and S2. Regular. ABDOMEN: Soft. EXTREMITIES: No edema. She has no leak from her chest tube. LABORATORY DATA: No labs were done today. ASSESSMENT: Status post left upper lobectomy for lung cancer. We are awaiting final pathology results. Her x-ray seems to be reasonable given the lobectomy. PLAN: Continue present care. Job ID: [id number]
[2018-07-08] MEDS: Multivit, Therapeutic 1 TAB PO SCH (08:31)
[2018-07-08] MEDS: Famotidine 20 MG TAB PO SCH ×2 (08:31→20:37)
[2018-07-08] MEDS: Polyethylene Glycol 3350 17 GM Packet PO SCH (08:31)
[2018-07-08] MEDS: Ondansetron PF 4 MG/2 ML Vial IVP PRN (08:46)
[2018-07-08] MEDS: Metoclopramide HCl 10 MG/2 ML VIAL IVP SCH ×3 (12:21→23:21)
--- NOTE | 2018-07-08 18:17 | PRG ---
DATE OF SERVICE: 07/08/2018 SERVICE: Pulmonary Medicine. INTERVAL HISTORY: The patient is doing great from a respiratory standpoint. She is breathing comfortably on room air. She actually says that she does not have any chest discomfort. She is not tolerating p.o. too well. She has not had a bowel movement, but she is passing gas. Otherwise, there has been no interval change to her condition. PHYSICAL EXAMINATION: VITAL SIGNS: Afebrile, pulse 58, blood pressure 159/67, respirations 18, saturation 94% on room air. GENERAL: The patient is awake and alert, in no apparent distress. LUNGS: Excellent air entry. There is no prolonged expiratory phase or wheezing present. HEART: Normal rate and regular. ABDOMEN: Soft, nontender, nondistended. Bowel sounds are positive. MUSCULOSKELETAL: No cyanosis or clubbing. No pitting in the bilateral lower extremities. NEUROLOGIC: Grossly nonfocal. IMAGING: Chest x-ray demonstrates chest tubes are in good position x2 on the left. There was a minimal apical pneumothorax present. She continues to have her . There is no significant effusions identified. ASSESSMENT: 1. Acute hypoxic respiratory failure, resolved. 2. Adenocarcinoma of the left upper lobe, status post left upper lobectomy, postop day #4. 3. Gastroesophageal reflux disease. DISCUSSION AND PLAN: The patient is doing quite well from a post-procedure standpoint. Thankfully, it appears as though the bronchial and vascular margins were negative and no lymph nodes were involved. From my perspective, she is stable for transition out of the hospital, now that she has had her chest tubes out assuming she remained stable overnight. I will have her return to clinic in 2 to 3 months. In the interim, we will have her visit with Oncology to determine whether or not it is in her interest to pursue chemotherapy given the size of the tumor and its near involvement of the pleural margin. Job ID: [id number]
[2018-07-08] MEDS: Atenolol 50 MG TAB PO SCH (20:36)
[2018-07-08] MEDS: Atorvastatin Calcium 10 MG TAB PO SCH (20:36)
[2018-07-08] MEDS: Ubidecarenone 50 MG CAP PO SCH (20:36)
[2018-07-08] MEDS: Aspirin 81 mg Enteric Coated Tablet PO SCH (20:37)
[2018-07-08] MEDS: Amlodipine 5 MG TAB PO SCH (20:37)
[2018-07-09 04:45] VITALS: BP 148/69; TEMP 98.2
[2018-07-09] MEDS: Metoclopramide HCl 10 MG/2 ML VIAL IVP SCH ×2 (05:52→11:13)
[2018-07-09] MEDS: Levothyroxine Sodium 100 MCG TAB PO SCH (05:52)
[2018-07-09] MEDS: Famotidine 20 MG TAB PO SCH (08:00)
[2018-07-09] MEDS: Multivit, Therapeutic 1 TAB PO SCH (08:00)
[2018-07-09] MEDS: Polyethylene Glycol 3350 17 GM Packet PO SCH (08:01)
--- NOTE | 2018-07-10 02:14 | DIS ---
DATE OF ADMISSION: 07/04/2018 DATE OF DISCHARGE: 07/09/2018 DIAGNOSES: Left upper lobe lung mass - pathologic examination, status post left upper lobectomy, reveals a 3.7 cm T1b N0 M0 adenocarcinoma. PROCEDURES: Left upper lobectomy with mediastinal lymph node resection. DESCRIPTION OF HOSPITAL STAY: Ms. Burris was brought in for left upper lobectomy. She has done well, being discharged to home to follow up with me in [address] Boudreaux in a month. Her oncologist, Dr. Douglass, will also follow her up in regard to her pathology. Job ID: [id number]
== END 2018-07-09 11:36 | disposition home or self-care (01) | DRG 163 ==
LOC: SURG A 05:55 → CCU 21:33 → SURG A 07-06 12:31
PROVIDERS: ADMIT Thoracic Surgery (Cardiothoracic Vascular Surgery); ATTEND Thoracic Surgery (Cardiothoracic Vascular Surgery)
PROC: 0BJL4ZZ Inspection of Left Lung, Percutaneous Endoscopic Approach (ICD-10-PCS; principal; 2018-07-04)
PROC: 0BTG0ZZ Resection of Left Upper Lung Lobe, Open Approach (ICD-10-PCS; 2018-07-04)
PROC: 07B70ZX Excision of Thorax Lymphatic, Open Approach, Diagnostic (ICD-10-PCS; 2018-07-04)
DX: C34.12 Malignant neoplasm of upper lobe, left bronchus or lung (principal); J96.01 Acute respiratory failure with hypoxia; I10 Essential (primary) hypertension; E78.5 Hyperlipidemia, unspecified; K21.9 Gastro-esophageal reflux disease without esophagitis; E03.9 Hypothyroidism, unspecified
CPT/HCPCS: 36415; 71045; 80048; 85025; 85027; 85610; 85730; 86850; 86900; 86901; 88305; 88309; 88331; 93005; 93010; G8978-GP-CL; G8979-GP-CJ; J0131; J0670; J1100; J1200; J1642; J1885; J2001; J2370; J2405; J2704; J2765; J2795; J3010

== ENCOUNTER 2018-08-08 11:13 | Outpatient (CLI) | payer MEDICARE, BC ==
--- NOTE | 2018-08-08 13:19 | RAD ---
PA AND LATERAL VIEWS CHEST: HISTORY: Malignant neoplasm of the upper lobe of the left lung. FINDINGS: Comparison is made with the exam of 07/08/2018. There are postop changes of left upper lobectomy. The heart size is normal. No focal areas of conso lidation, pneumothoraces or large effusions are seen. There are degenerative changes in the spine. POS: [facility]
== END 2018-08-08 11:14 | disposition home or self-care (01) ==
LOC: RAD 11:13
PROVIDERS: ATTEND Thoracic Surgery (Cardiothoracic Vascular Surgery)
DX: C34.12 Malignant neoplasm of upper lobe, left bronchus or lung (principal)
CPT/HCPCS: 71046

== ENCOUNTER 2018-09-23 09:38 | Outpatient (CLI) | payer MEDICARE, BC ==
--- NOTE | 2018-09-23 11:06 | RAD ---
EXAM: CHEST TWO VIEWS: History: Dyspnea. Comparison: 08-08-18 FINDINGS: Left sided volume loss with post-operative changes in the left perihilar region and some left hemidia phragm elevation and minimal linear parenchymal changes, stable from prior study. No confluent pneumo maximilian or overt edema. No pleural effusion. Stable right chest. IMPRESSION: Stable post-operative changes on the left with some volume loss. No new process. POS: [facility]
== END 2018-09-23 09:39 | disposition home or self-care (01) ==
LOC: RAD 09:38
PROVIDERS: ATTEND Internal Medicine
DX: R06.00 Dyspnea, unspecified (principal); Z98.890 Other specified postprocedural states
CPT/HCPCS: 71046

== ENCOUNTER 2019-01-08 08:55 | Outpatient (CLI) | payer MEDICARE, BC ==
--- NOTE | 2019-01-08 09:50 | CT ---
CT Chest W Con HISTORY: Lung cancer diagnosed in 2018. COMPARISON: CT examination of 12/01/2016 and PET scan of 06/21/2018. Review is also made of a CT angio gram of the chest of 05/24/2018. FINDINGS: Postoperative changes of the left upper lobe are now demonstrated with associated volume lo ss changes. No evidence of any mass. There is some minimal linear scarring present. No new pulmonary nodules are identified. There is no significant mediastinal, hilar or axillary lymphadenopa thy. The visualized liver parenchyma shows no focal findings. There is a hiatal hernia noted. Right and le ft adrenal glands are normal in size. Review of osseous structures show no lytic or blastic bony changes. IMPRESSION: Postoperative changes of the left upper lobe. No evidence of metastatic disease.
== END 2019-01-08 08:56 | disposition home or self-care (01) ==
LOC: BICCT 08:55
PROVIDERS: ATTEND Internal Medicine Hematology & Oncology
DX: C34.90 Malignant neoplasm of unspecified part of unspecified bronchus or lung (principal); Z98.890 Other specified postprocedural states
CPT/HCPCS: 71260; 82565

== ENCOUNTER 2019-07-09 13:05 | Outpatient (CLI) | payer MEDICARE, BC ==
[~2019-07-09 13:05] MED LIST: Iopamidol-370 76% 500 ML 1 ML ONE
--- NOTE | 2019-07-09 15:55 | CT ---
CT CHEST AND ABDOMEN AND PELVIS WITH INTRAVENOUS CONTRAST: HISTORY: The patient has a history of left lung cancer and renal cysts status post lung resection. This is josé miguel ng done for surveillance. History of cholecystectomy, appendectomy and hysterectomy as well as back s urgery and hernia repair. COMPARISON: 01/08/2019 FINDINGS: CHEST: Postoperative changes of the left upper lobe are again demonstrated. There are no pulmonary no dules demonstrated. No pleural effusions noted. There is no significant mediastinal, hilar or axillary adenopathy. ABDOMEN: A hiatal hernia is noted. The liver, spleen and pancreas regions appear unremarkable. The ga llbladder has been removed. The right and left adrenal glands and the right and left kidneys are normal in size. There is no sign ificant periaortic or mesenteric adenopathy. PELVIS: A fat-containing periumbilical hernia is seen and postop changes in this region are noted. Th ere is no pelvic lymphadenopathy or mass. Review of osseous structures shows arthritic change of the spine. No lytic or blastic bony changes. IMPRESSION: 1. Postoperative changes of the left upper lobe. No evidence of any recurrent or metastatic disease. 2. Hiatal hernia. POS: [facility]
== END 2019-07-09 13:06 | disposition home or self-care (01) ==
LOC: BICCT 13:05
PROVIDERS: ATTEND Internal Medicine Hematology & Oncology
DX: C34.12 Malignant neoplasm of upper lobe, left bronchus or lung (principal); N28.1 Cyst of kidney, acquired; K44.9 Diaphragmatic hernia without obstruction or gangrene; Z98.890 Other specified postprocedural states
CPT/HCPCS: 71260; 74177; 82565; Q9967

== ENCOUNTER 2020-01-08 07:58 | Outpatient (CLI) | payer MEDICARE, BC ==
--- NOTE | 2020-01-08 09:11 | CT ---
CT CHEST WITH IV CONTRAST: Date: 01/08/2020 HISTORY: Left lung cancer, status post resection. COMPARISON: 07/09/2019 and 01/08/2019. FINDINGS: Postop changes of the left upper lobe are again seen. No pulmonary nodules are identified. No mediast inal, hilar, or axillary mass or lymphadenopathy seen. There is good contrast opacification of the pu lmonary arterial vasculature without filling defects to suggest pulmonary embolism. The thoracic aort a is well opacified without aneurysm or dissection. A hiatal hernia is again seen. There are degenera tive changes to the spine. No osteolytic or osteoblastic lesions are seen. Operative tomograms are un remarkable except for changes of cholecystectomy. IMPRESSION: Stable exam. No evidence of recurrent or metastatic disease. POS: [facility]
== END 2020-01-08 07:59 | disposition home or self-care (01) ==
LOC: BICCT 07:58
PROVIDERS: ATTEND Internal Medicine Hematology & Oncology
DX: C34.12 Malignant neoplasm of upper lobe, left bronchus or lung (principal)
CPT/HCPCS: 71260; 82565

== ENCOUNTER 2020-07-09 08:04 | Outpatient (CLI) | payer MEDICARE, BC ==
--- NOTE | 2020-07-09 08:54 | CT ---
CT OF THE CHEST WITH IV CONTRAST INDICATION: History of left lung cancer status post partial lung resection COMPARISON: Prior exam dated January 08, 2020 FINDINGS: CHEST: Lungs: There is stable postsurgical change of a left upper lobectomy. There is stable scarring within the anterior aspect of the left lower lobe. The right lung is clear. There is mild emphysema. Pleural space: No effusion. Mediastinum: There is a small hiatal hernia. There are coronary artery and thoracic aortic calcificat ions. No pathologically enlarged lymph nodes are seen within the hilar regions or mediastinum. Upper abdomen:There is a very tiny cyst seen within the caudate lobe which is stable to the prior exa m. There is a stable 1.1 cm left adrenal adenoma. Right adrenal gland is normal-appearing. Osseous structures: No acute osseous abnormality. No destructive osteolytic or osteoblastic lesion i s identified. There is scattered degenerative and osteoarthritic changes. Soft tissues:Normal. IMPRESSION: 1. Stable postsurgical change of the left upper lobectomy. 2. No evidence to suggest recurrent malignancy or metastatic disease in the thorax. 3. Mild emphysema. 4. Stable left adrenal adenoma. 5. Stable small caudate lobe cyst. 6. Small hiatal hernia.
[2020-07-09] MEDS ORDERED: Iopamidol-370 76% 500 ML 1 ML ONE (14:02)
== END 2020-07-09 08:05 | disposition home or self-care (01) ==
LOC: BICCT 08:04
PROVIDERS: ATTEND Internal Medicine Hematology & Oncology
DX: C34.12 Malignant neoplasm of upper lobe, left bronchus or lung (principal); J43.9 Emphysema, unspecified; D35.02 Benign neoplasm of left adrenal gland; K76.89 Other specified diseases of liver; K44.9 Diaphragmatic hernia without obstruction or gangrene; Z98.890 Other specified postprocedural states
CPT/HCPCS: 71260; 82565; Q9967

== ENCOUNTER 2021-01-10 08:48 | Outpatient (CLI) | payer MEDICARE, BC ==
[2021-01-10] MEDS ORDERED: Iopamidol-370 76% 500 ML 1 ML ONE (08:52)
== END 2021-01-10 08:49 | disposition home or self-care (01) ==
LOC: BICCT 08:48
PROVIDERS: ATTEND Internal Medicine Hematology & Oncology
DX: C34.12 Malignant neoplasm of upper lobe, left bronchus or lung (principal); K76.89 Other specified diseases of liver; E27.8 Other specified disorders of adrenal gland; K44.9 Diaphragmatic hernia without obstruction or gangrene; Z98.890 Other specified postprocedural states
CPT/HCPCS: 71260; 82565

== ENCOUNTER 2021-07-11 07:58 | Outpatient (CLI) | payer MEDICARE, BC ==
[2021-07-11] MEDS ORDERED: Iopamidol 370 76% 100 ML VIAL ONE (13:17)
== END 2021-07-11 07:59 | disposition home or self-care (01) ==
LOC: CT 07:58
PROVIDERS: ATTEND Internal Medicine Hematology & Oncology
DX: C34.12 Malignant neoplasm of upper lobe, left bronchus or lung (principal); S30.1XXA Contusion of abdominal wall, initial encounter
CPT/HCPCS: 71260; 82565

== ENCOUNTER 2022-02-14 12:26 | Outpatient (CLI) | payer MEDICARE, BC | END 2022-02-14 12:27 | disposition home or self-care (01) | LOC: BICRAD 12:26 | PROVIDERS: ATTEND Thoracic Surgery (Cardiothoracic Vascular Surgery) | DX: C34.12 Malignant neoplasm of upper lobe, left bronchus or lung (principal) | CPT/HCPCS: 71046 ==

== ENCOUNTER 2022-07-10 08:22 | Outpatient (CLI) | payer MEDICARE, BC ==
[2022-07-10] MEDS ORDERED: Iopamidol 370 76% 100 ML VIAL ONE (15:56)
== END 2022-07-10 08:23 | disposition home or self-care (01) ==
LOC: BICCT 08:22 → CT 08:23
PROVIDERS: ATTEND Internal Medicine Hematology & Oncology
DX: C34.90 Malignant neoplasm of unspecified part of unspecified bronchus or lung (principal); M79.9 Soft tissue disorder, unspecified; Z90.2 Acquired absence of lung [part of]
CPT/HCPCS: 71260; 82565; Q9967

== ENCOUNTER 2023-04-02 14:44 | Outpatient (CLI) | payer MEDICARE, BC | END 2023-04-02 14:45 | disposition home or self-care (01) | LOC: RAD 14:44 | PROVIDERS: ATTEND Thoracic Surgery (Cardiothoracic Vascular Surgery) | DX: C34.12 Malignant neoplasm of upper lobe, left bronchus or lung (principal); J98.4 Other disorders of lung; Z98.890 Other specified postprocedural states | CPT/HCPCS: 71046 ==

== ENCOUNTER 2023-07-09 08:11 | Outpatient (CLI) | payer MEDICARE, BC ==
[2023-07-09] MEDS ORDERED: Iopamidol 370 76% 100 ML VIAL ONE (09:24)
== END 2023-07-09 08:12 | disposition home or self-care (01) ==
LOC: CT 08:11
PROVIDERS: ATTEND Internal Medicine Hematology & Oncology
DX: C34.12 Malignant neoplasm of upper lobe, left bronchus or lung (principal)
CPT/HCPCS: 71260; 82565; Q9967

== ENCOUNTER 2024-08-12 13:31 | Outpatient (CLI) | payer MEDICARE, BC | END 2024-08-12 13:32 | disposition home or self-care (01) | LOC: BICCT 13:31 | PROVIDERS: ATTEND Internal Medicine Hematology & Oncology | DX: C34.12 Malignant neoplasm of upper lobe, left bronchus or lung (principal); R91.1 Solitary pulmonary nodule | CPT/HCPCS: 71250 ==